=== PATIENT | female | born 1940 | race Caucasian/White ===

== ENCOUNTER 2018-11-01 20:10 | Emergency (ER) | payer MEDICARE ==
[2018-11-01 20:34] VITALS: BP 162/87
--- NOTE | 2018-11-01 21:25 | UC ---
Skin Complaint HPI - HPI Summary HPI Summary: Onset of bilateral lower extremity rash x 4 or 5 days ago, initial spread, now stable. No associatedd illness, pain, fever, joint pains. Reviewed medication history. Returned from [place] this morning on an overnight flight, and aware of increase in bilateral leg edema this afternoon. No leg pain, Feels well without shortness of breath. Active and walks 4 miles per day. Began amlodipine about 6 months ago for treatment of hypertension. - History of Current Complaint Chief Complaint: UCLowerExtremity Time Seen by Provider: 11/01/18 21:01 Stated Complaint: RASH, AND ANKLE SWELLING Hx Obtained From: Patient Onset/Duration: Gradual Onset, Lasting Days Timing: Constant Onset Severity: Mild Current Severity: Mild Pain Intensity: 0 Location: Discrete Aggravating Factor(s): Nothing Alleviating Factor(s): Nothing Associated Signs & Symptoms: Positive: Negative - Allergy/Home Medications Allergies/Adverse Reactions: Allergies Allergy/AdvReac Type Severity Reaction Status Date / Time No Known Allergies Allergy Verified 11/01/18 20:34 Home Medications: Home Medications Albuterol Sulfate [Ventolin Hfa] 18 gm PO Q4HR 11/01/18 [History Confirmed 11/01] Amlodipine Besylate [Amlodipine 2.5 mg tab] 5 mg PO DAILY 11/01/18 [History Confirmed 11/01/18] Aspirin 81 mg CHEW TAB* 81 mg PO DAILY 11/01/18 [History Confirmed 11/01/18] Azelastine HCl 137 mcg INH BID 11/01/18 [History Confirmed 11/01/18] Levothyroxine Sodium [Levoxyl] 25 mcg PO DAILY 11/01/18 [History Confirmed 11/01] Metoprolol Succinate 50 mg PO DAILY 11/01/18 [History Confirmed 11/01/18] Ramipril CAP* [Altace CAP*] 20 mg PO DAILY 11/01/18 [History Confirmed 11/01/18] Rosuvastatin (NF) [Crestor (NF)] 5 mg PO DAILY 11/01/18 [History Confirmed 11/01] PMH/Surg Hx/FS Hx/Imm Hx Previously Healthy: Yes Endocrine History: Hypothyroidism Cardiovascular History: Hypertension - Surgical History Surgical History: Yes Surgery Procedure, Year, and Place: TUBal HYSTERECTOMY LUMPECTOMY - Family History Known Family History: Positive: Cardiac Disease - both parents had IA's, Diabetes - mother - Social History Alcohol Use: Rare Substance Use Type: None Smoking Status (MU): Former Smoker When Did the Patient Quit Smoking/Using Tobacco: 1968 Review of Systems All Other Systems Reviewed And Are Negative: Yes Constitutional: Positive: Negative Skin: Positive: Rash Eyes: Positive: Negative ENT: Positive: Negative Respiratory: Negative: Shortness Of Breath, Cough Cardiovascular: Positive: Negative Gastrointestinal: Positive: Negative Genitourinary: Positive: Negative - voiding normal, no increase or decrease in urine output Motor: Positive: Negative Neurovascular: Positive: Negative Musculoskeletal: Positive: Negative Neurological: Positive: Negative Is Patient Immunocompromised?: No Physical Exam Triage Information Reviewed: Yes Appearance: Well-Appearing, No Pain Distress Vital Signs: Initial Vital Signs Temp 98.5 F 11/01/18 20:30 Pulse 85 11/01/18 20:30 Resp 16 11/01/18 20:30 BP 162/87 11/01/18 20:30 Pulse Ox 99 11/01/18 20:30 Eye Exam: Normal Eyes: Positive: Conjunctiva Clear ENT: Positive: Pharynx normal Neck: Positive: Supple, Nontender, No Lymphadenopathy Respiratory: Positive: Lungs clear, Normal breath sounds Cardiovascular: Positive: RRR, No Murmur Musculoskeletal Exam: Normal, Other - no joint effusions, warmth or swelling. Musculoskeletal: Positive: Strength Intact, ROM Intact Neurological: Positive: Alert, Muscle Tone Normal Psychological Exam: Normal Skin Exam: Other - petechial rash both forelegs to about mid calf. No calf tenderness, negative Mcihael's Skin: Positive: Other - pitting edema 2+ distal calves/ankles. Course/Dx - Course Course Of Treatment: Begin evaluation of petechial rash. No evidence of underlying systemic illness. Will begin inital labs with follow up to PMD. Dependency edema most likely related to use of amlodipine and recent flight. - Diagnoses Provider Diagnosis: Petechial rash, Dependent edema Discharge - Sign-Out/Discharge Documenting (check all that apply): Patient Departure All imaging exams completed and their final reports reviewed: No Studies - Discharge Plan Condition: Good Disposition: HOME Patient Education Materials: Acute Rash (ED) Referrals: Betty Figueroa NP [Primary Care Provider] - Additional Instructions: As reviewed, the rash which you have needs to be evaluated with testing and possibly a skin biopsy. The rash is a petechial rash, related to small blod vessels opeining on the skin. In your case, it is not associated with worrisom symptoms such as joint swelling. Initial labs have been done; please arrange a follow up with Scott Figueroa either tomorrow or Monday to review and determine next steps. The leg edema should improve with elevation, and is most likely related to the use of amlodipine. This promotes dilation of blood vessels, which would have been worsened by your recent flight. - Billing Disposition and Condition Condition: GOOD Disposition: Home
[2018-11-02 11:03] LABS: ABS Eosinophils 0.1 10^3/ul (0-0.6); ABS Lymphocytes 1.8 10^3/ul (1.0-4.8); ABS Monocytes 0.7 10^3/ul (0-0.8); ABS Neutrophils 5.7 10^3/ul (1.5-7.7); Hematocrit 37 % (35-47); Hemoglobin 12.4 g/dL (12.0-16.0); Lymphocyte % 21.7 %; Mean Corpuscular HGB Conc 33 g/dL (31-36); Mean Corpuscular Hemoglobin 30 pg (27-31); Mean Corpuscular Volume 90 fL (80-97); Platelet Count 213 10^3/uL (150-450); Red Blood Count 4.13 10^6 /uL (3.70-4.87); Red Cell Distribution Width 14 % (10.5-15); White Blood Count 8.2 10^3/uL (3.5-10.8)
[2018-11-02 11:09] LABS: Albumin 4.5 g/dL (3.2-5.2); Calcium 9.9 mg/dL (8.6-10.3); Potassium 3.9 mmol/L (3.5-5.0); Total Bilirubin 0.5 mg/dL (0.2-1.0)
[2018-11-02 11:11] LABS: INR 0.87 (0.82-1.09)
[2018-11-02 11:15] LABS: Albumin/Globulin Ratio 1.6 (1-3); BUN/Creatinine Ratio 29.2 (8-20); C Reactive Protein 2.65 mg/L (<8.01); EGFR Non-African American 78.5 (>60); Globulin 2.8 g/dL (2-4); Total Protein 7.3 g/dL (6.4-8.9)
== END 2018-11-01 21:50 | disposition home or self-care (01) ==
LOC: UCEAST 20:10
DX: R23.3 Spontaneous ecchymoses (principal); R60.9 Edema, unspecified; E03.9 Hypothyroidism, unspecified; I10 Essential (primary) hypertension; Z79.890 Hormone replacement therapy; Z79.899 Other long term (current) drug therapy; Z87.891 Personal history of nicotine dependence
CPT/HCPCS: 36415; 80053; 85025; 85610; 86140; 99211; G0463